=== PATIENT | female | born 1945 | race Caucasian/White ===

== ENCOUNTER 2024-06-14 16:22 | Emergency (ER) | payer MEDICARE ==
[2024-06-14] MEDS: cloNIDine 0.1 MG Tab PO ONE (18:10)
== END 2024-06-14 19:03 | disposition home or self-care (01) ==
LOC: JP.ED 16:22
DX: I10 Essential (primary) hypertension (principal); Z88.8 Allergy status to other drugs, medicaments and biological substances
CPT/HCPCS: 99283; A9270

== ENCOUNTER 2025-01-26 08:42 | Day surgery (SDC) | payer MEDICARE ==
[2025-01-26] MEDS: Lactated Ringers 1,000 ML IV SCH (09:52)
[2025-01-26] MEDS ORDERED: fentaNYL 100 MCG/2 ML SDV ONE (10:13)
[2025-01-26] MEDS ORDERED: Propofol 200 MG/20 ML SDV ONE (10:13)
== END 2025-01-26 12:09 | disposition home or self-care (01) ==
LOC: JP.SDS 08:42
PROVIDERS: ATTEND Surgery
DX: K57.30 Diverticulosis of large intestine without perforation or abscess without bleeding (principal); I10 Essential (primary) hypertension
CPT/HCPCS: 00811; 45380; 88305; J2704; J3010; J7120

== ENCOUNTER 2025-07-19 09:24 | Day surgery (SDC) | payer MEDICARE ==
[2025-07-19] MEDS ORDERED: fentaNYL 50 MCG/ML SDV ONE (09:50)
[2025-07-19] MEDS ORDERED: Propofol 200 MG/20 ML SDV ONE (09:50)
[2025-07-19] MEDS: Lactated Ringers 1,000 ML IV SCH (10:15)
== END 2025-07-19 12:20 | disposition home or self-care (01) ==
LOC: JP.SDS 09:24
PROVIDERS: ATTEND Surgery
DX: K52.839 Microscopic colitis, unspecified (principal); I10 Essential (primary) hypertension; Z88.6 Allergy status to analgesic agent; Z79.899 Other long term (current) drug therapy
CPT/HCPCS: 00811; 45380; J2704; J3010; J7120